=== PATIENT | male | born 2000 | race Caucasian/White ===

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

== ENCOUNTER 2024-07-25 20:06 | Emergency (ER) | payer OTHER, BC ==
[2024-07-25 20:19] VITALS: BP 172/94; PULSE 116; RESP 20; TEMP 98.3; BMI 28.5
== END 2024-07-25 21:09 | disposition home or self-care (01) ==
LOC: JER 20:06
DX: H92.02 Otalgia, left ear (principal); M79.602 Pain in left arm; R00.0 Tachycardia, unspecified
CPT/HCPCS: 99283-25